=== PATIENT | female | born 1970 | race Hispanic/Latino ===

== ENCOUNTER 2022-06-13 16:18 | Emergency (ER) | payer OTHER ==
[~2022-06-13] VITALS: Ht 154.9 cm; Wt 67.6 kg
[2022-06-13] MEDS ORDERED: TETANUS/DIPHTHERIA TOX ADULT 0.5 ML SYR IM ONE (16:45)
[2022-06-13] MEDS ORDERED: IBUPROFEN600 MG PO (18:06)
== END 2022-06-13 18:28 | disposition home or self-care (01) ==
LOC: ER 16:32
DX: S80.02XA Contusion of left knee, initial encounter (principal); V58.4XXA Person boarding or alighting a pick-up truck or van injured in noncollision transport accident, initial encounter; Y92.89 Other specified places as the place of occurrence of the external cause
CPT/HCPCS: 90714; 99283